=== PATIENT | female | born 1995 | race Two or more races ===

== ENCOUNTER 2020-09-09 15:15 | Observation (INO) | payer MEDICAID ==
[2020-09-09 17:14] LABS: CLARITY URINE CLEAR (CLEAR); COLOR URINE YELLOW (YELLOW); KETONES URINE NEGATIVE (NEGATIVE); LEUKOCYTE ESTERASE URINE 3+ (NEGATIVE); NITRITE URINE NEGATIVE (NEGATIVE); OCCULT BLOOD URINE NEGATIVE (NEGATIVE); PH URINE 7.5 (4.5-8.0); PROTEIN URINE NEGATIVE (NEGATIVE); SPECIFIC GRAVITY URINE 1.006 (1.005-1.030); UROBILINOGEN URINE 0.2 E.U./dL (0.2-1.0)
[2020-09-09] MEDS ORDERED: PREN-118 MT (17:19)
== END 2020-09-09 15:30 | disposition home or self-care (01) ==
LOC: 8 EST LDRP 15:15
PROVIDERS: ADMIT Obstetrics & Gynecology; ATTEND Obstetrics & Gynecology
DX: O26.893 Other specified pregnancy related conditions, third trimester (principal); R10.30 Lower abdominal pain, unspecified; Z3A.37 37 weeks gestation of pregnancy
CPT/HCPCS: 59025; 81003; G0378; 99281

== ENCOUNTER 2020-09-29 04:34 | Inpatient (IN) | payer MEDICAID ==
[~2020-09-29] VITALS: Ht 160 cm; Wt 78.5 kg
[~2020-09-29 04:34] MED LIST: PREN-118 MT
[2020-09-29] MEDS ORDERED: LIDOCAINE HCL 1% 20ML VIAL (Pyxis) INJ INFIL SCH (05:15)
[2020-09-29] MEDS ORDERED: LACTATED RINGERS 1,000 ML IV SCH (05:15)
[2020-09-29] MEDS ORDERED: NALOXONE HCL 0.4 MG/ML 1ML VIAL IM PRN (05:15)
[2020-09-29] MEDS ORDERED: BUTORPHANOL TARTRATE 2 MG/ML VIAL IV PRN (05:15)
[2020-09-29] MEDS ORDERED: DEXT 5%/LR + PITOCIN 20UNITS/L 1,000 ML IV SCH ×2 (05:15→06:30)
[2020-09-29] MEDS ORDERED: METHYLERGONOVINE MALEATE 0.2 MG/ML IM PRN (05:15)
[2020-09-29 05:59] LABS: BASOPHILS % 0.2 % (0.0-2.0); EOSINOPHILS % 1.2 % (0.0-5.0); HEMATOCRIT. 41.5 % (36.0-48.0); LYMPHOCYTES % 22.4 % (20.0-50.0); MEAN CORPUSCULAR HEMOGLOBIN 29.1 pg (28.0-32.0); MEAN CORPUSCULAR VOLUME 86.4 fL (81.0-99.0); MEAN PLATELET VOLUME 8.6 fl (7.4-10.4); NEUTROPHILS % 68.2 % (40.0-76.0); PLATELET 263 x1000/uL (130-400); RED BLOOD CELL COUNT 4.81 mill/uL (4.2-5.4); RED CELL DISTRIBUTION WIDTH 16.7 % (11.6-14.6)
[2020-09-29] MEDS ORDERED: PENICILLIN G POTASSIUM 5 MMU in DEXT 5% WATER 100 ML IV SCH (06:00)
[2020-09-29 06:06] LABS: INR 0.9; PARTIAL THROMBOPLASTIN TIME 26.5 sec (23.4-31.0); PROTHROMBIN TIME 10.2 sec (9.6-11.0)
[2020-09-29 06:10] LABS: CLARITY URINE CLEAR (CLEAR); COLOR URINE YELLOW (YELLOW); KETONES URINE NEGATIVE (NEGATIVE); LEUKOCYTE ESTERASE URINE TRACE (NEGATIVE); NITRITE URINE NEGATIVE (NEGATIVE); OCCULT BLOOD URINE TRACE (NEGATIVE); PH URINE 7.5 (4.5-8.0); PROTEIN URINE NEGATIVE (NEGATIVE); SPECIFIC GRAVITY URINE 1.007 (1.005-1.030); UROBILINOGEN URINE 0.2 E.U./dL (0.2-1.0)
[2020-09-29 06:26] LABS: *BARBITURATES SCREEN URINE NEGATIVE (NEGATIVE); *BENZODIAZEPINES SCREEN URINE NEGATIVE (NEGATIVE); *COCAINE SCREEN URINE NEGATIVE (NEGATIVE); METHADONE URINE SCREEN NEGATIVE (NEGATIVE); OPIATES URINE SCREEN NEGATIVE (NEGATIVE); PHENCYCLIDINE URINE SCREEN NEGATIVE (NEGATIVE)
[2020-09-29 06:27] LABS: *AMPHETAMINES SCREEN URINE NEGATIVE (NEGATIVE); CANNABINOID URINE SCREEN NEGATIVE (NEGATIVE)
[2020-09-29] MEDS ORDERED: BISACODYL 10MG SUPP PR PRN (06:30)
[2020-09-29] MEDS ORDERED: DIPHENHYDRAMINE 25MG CAPSULE PO PRN (06:30)
[2020-09-29] MEDS ORDERED: RHO(D) IMMUNE GLOBULIN 300 MCG/SYR IM PRN (06:30)
[2020-09-29] MEDS ORDERED: IBUPROFEN 400MG TABLET PO PRN (06:30)
[2020-09-29] MEDS ORDERED: HEMORRHOIDAL SUPP PR PRN (06:30)
[2020-09-29] MEDS ORDERED: BENZOCAINE/LANOLIN/ALOE VERA SPRAY TOP PRN (06:30)
[2020-09-29] MEDS ORDERED: LANOLIN OINT 7GM TUBE TOP PRN (06:30)
[2020-09-29] MEDS ORDERED: GLYCERIN/WITCH HAZEL LEAF MEDICATED PAD TOP PRN (06:30)
[2020-09-29] MEDS ORDERED: ACETAMINOPHEN WITH CODEINE 300/30MG TABLET PO PRN (06:30)
[2020-09-29 06:32] LABS: HEPATITIS B SURFACE ANTIGEN NEGATIVE
[2020-09-29 08:30] VITALS: BP 110/51
[2020-09-29 09:00] VITALS: BP 110/58
[2020-09-29] MEDS ORDERED: PENICILLIN G POTASSIUM 2.5 MMU in DEXTROSE 5% WATER 50 ML IV SCH (10:00)
[2020-09-29 16:00] VITALS: BP 104/53
[2020-09-29] MEDS: PRENATAL VIT/FE FUMARATE/FA TABLET PO SCH (16:03)
[2020-09-29] MEDS: IBUPROFEN 800MG TABLET PO PRN ×2 (16:03→20:31)
[2020-09-29 20:00] VITALS: BP 108/65
[2020-09-29] MEDS ORDERED: DOCUSATE SODIUM 100MG CAPSULE PO SCH (21:00)
[2020-09-30 04:00] VITALS: BP 108/62
[2020-09-30 07:02] LABS: BASOPHILS % 0.4 % (0.0-2.0); EOSINOPHILS % 2.2 % (0.0-5.0); HEMATOCRIT. 37.1 % (36.0-48.0); HEMOGLOBIN. 12.5 g/dL (12.0-16.0); LYMPHOCYTES % 22.9 % (20.0-50.0); MEAN CORPUSCULAR HEMOGLOBIN 29.2 pg (28.0-32.0); MEAN PLATELET VOLUME 8.2 fl (7.4-10.4); MONOCYTES % 6.7 % (2.0-8.0); NEUTROPHILS % 67.8 % (40.0-76.0); PLATELET 211 x1000/uL (130-400); RED BLOOD CELL COUNT 4.26 mill/uL (4.2-5.4); RED CELL DISTRIBUTION WIDTH 17.2 % (11.6-14.6)
[2020-09-30 08:00] VITALS: BP 100/62
[2020-09-30] MEDS: FERROUS SULFATE 325MG TABLET PO SCH ×2 (08:23→12:27)
[2020-09-30] MEDS: PRENATAL VIT/FE FUMARATE/FA TABLET PO SCH (08:23)
[2020-09-30] MEDS ORDERED: IBUP-2030 PO (15:00)
[2020-09-30] MEDS ORDERED: FERR325T23 PO (15:00)
[2020-09-30 15:30] VITALS: BP 105/61
== END 2020-09-30 16:30 | disposition home or self-care (01) | DRG 560 ==
LOC: OBSVTOIN 04:34 → 8 EST LDRP 04:34 → 8EST 08:20
PROVIDERS: ADMIT Obstetrics & Gynecology; ATTEND Obstetrics & Gynecology
PROC: 10E0XZZ Delivery of Products of Conception, External Approach (ICD-10-PCS; principal; 2020-09-29)
PROC: 0W8NXZZ Division of Female Perineum, External Approach (ICD-10-PCS; 2020-09-29)
DX: O80 Encounter for full-term uncomplicated delivery (principal); Z37.0 Single live birth; Z3A.40 40 weeks gestation of pregnancy
CPT/HCPCS: 36415; 80305; 81003; 85025; 86592; 86703; 86762; 86850; 86900; 87340; 99281; J2540; J2590; J3490; J7060; J7120